=== PATIENT | male | born 1945 | race Caucasian/White ===

== ENCOUNTER → 2023-08-25 | Emergency (ER) | payer OTHER ==
[~2023-08-25] VITALS: Ht 165.1 cm; Wt 65.8 kg
[~2023-08-25] MED LIST: GRALISE600 MG; LUMIGAN2.5 M1
[2023-08-25 14:00] LABS: HEMATOCRIT 38.5 % (39.0-48.0); HEMOGLOBIN 13.3 g/dL (13-16.00); MEAN CELL VOLUME 90.5 fL (80.0-100.00); MEAN CORPUSCULAR HEMOGLOBIN 31.2 pg (27.00-32.0); MEAN CORPUSCULAR HGB CONC 34.5 g/dl (32.0-36.0); PLATELET COUNT 208 K/uL (150-450); RED BLOOD COUNT 4.26 M/uL (4.00-6.00)
[2023-08-25 14:07] LABS: PH,URINE 5.5 (5.0-8.0); URINE APPEARANCE Clear; URINE BILIRRUBIN Negative (NEGATIVE); URINE BLOOD Small; URINE COLOR Yellow; URINE GLUCOSE Negative (NEGATIVE); URINE LEUKOCYTE Negative; URINE NITRATE Negative; URINE PROTEIN Negative (NEGATIVE)
[2023-08-25 14:11] LABS: URINE BACTERIA 21.4 uL (0.0-1933); URINE EPITHELIAL CELLS 3.3 uL (0.0-38.8); URINE RBC 25.7 uL (0.0-20.8); URINE WBC 10.6 uL (0.0-23.2)
[2023-08-25 14:25] LABS: CREATININE SERUM 0.96 mg/dL (0.70-1.30); GFR 75.95; POTASSIUM 4.34 mEq/L (3.5-5.1)
[2023-08-25 15:09] LABS: URINE CRYSTALS MODERATE /HPF
== END | disposition home or self-care (01) ==
LOC: ER 11:48
PROVIDERS: General Practice
DX: N20.1 Calculus of ureter (principal); N23 Unspecified renal colic; Z87.442 Personal history of urinary calculi
CPT/HCPCS: 36415; 74176; 96372; 99284; J1885